=== PATIENT | male | born 1985 | race American Indian/Alaskan Native ===

== ENCOUNTER 2019-10-17 01:43 | Emergency (ER) | payer SELFPAY ==
--- NOTE | 2019-10-17 03:07 | XRay Report ---
LEFT FOOT 3 VIEWS INDICATION: left foot pain. COMPARISON: No relevant prior imaging study available. FINDINGS: No acute skeletal abnormality. No foreign bodies. No focal soft tissue swelling. IMPRESSION: 1. No acute findings. Signer Name: Nirav Parnell MD Signed: 10/17/2019 3:03 AM Workstation Name: [id number]
--- NOTE | 2019-10-17 05:05 | Emergency Department Report ---
ED General Adult HPI - General Chief complaint: Puncture Wound Stated complaint: LEFT FOOT INJURY Time Seen by Provider: 10/17/19 04:54 Source: patient Mode of arrival: Ambulatory Limitations: No Limitations - History of Present Illness Initial comments: 34-year-old male patient presents with complaints of left foot pain after stepping on a screw at work on Thursday. Patient states the screw went through his shoe and into his foot. He rates his current pain as a 7/10 in severity and states the pain only occurs when he steps down on his foot. He denies any swelling, redness, fever/chills/sweats. Patient is unsure of his last tetanus shot. -: Sudden Quality: stabbing - Related Data Previous Rx's Medication Instructions Recorded Last Taken Type Ibuprofen [Motrin 800 MG tab] 800 mg PO Q8HR PRN #21 tablet 10/17/19 Unknown Rx cephALEXin [Keflex] 500 mg PO Q8HR 5 Days #15 cap 10/17/19 Unknown Rx levoFLOXacin [Levaquin] 750 mg PO QDAY 5 Days #5 tablet 10/17/19 Unknown Rx Allergies Allergy/AdvReac Type Severity Reaction Status Date / Time No Known Allergies Allergy Verified 10/17/19 01:46 ED Review of Systems ROS: Stated complaint: LEFT FOOT INJURY Other details as noted in HPI Constitutional: denies: chills, fever Musculoskeletal: as per HPI. denies: myalgia Skin: as per HPI ED Past Medical Hx - Past Medical History Previous Medical History?: Yes Additional medical history: Obesity - Surgical History Past Surgical History?: No - Social History Smoking Status: Current Every Day Smoker Substance Use Type: None - Medications Home Medications: Home Medications Medication Instructions Recorded Confirmed Last Taken Type Ibuprofen [Motrin 800 MG tab] 800 mg PO Q8HR PRN #21 tablet 10/17/19 Unknown Rx cephALEXin [Keflex] 500 mg PO Q8HR 5 Days #15 cap 10/17/19 Unknown Rx levoFLOXacin [Levaquin] 750 mg PO QDAY 5 Days #5 tablet 10/17/19 Unknown Rx ED Physical Exam - General Limitations: No Limitations General appearance: alert, in no apparent distress - Head Head exam: Present: atraumatic, normocephalic - Eye Eye exam: Present: normal appearance - Respiratory Respiratory exam: Absent: respiratory distress - Cardiovascular Cardiovascular Exam: Present: regular rate - Expanded Lower Extremity Exam Left Foot/Toe exam: Present: full ROM, tenderness, puncture wound (small brown diet noted at Place where patient states puncture wound occurred. Moderate tenderness to palpation. No surrounding erythema or swelling noted). Absent: swelling, ecchymosis, deformity, erythema - Neurological Exam Neurological exam: Present: alert, oriented X3 - Psychiatric Psychiatric exam: Present: normal affect, normal mood - Skin Skin exam: Present: warm, dry, intact, normal color. Absent: rash ED Course Vital Signs 10/17/19 10/17/19 01:47 02:16 Temperature 98.7 F Pulse Rate 79 76 Respiratory 18 18 Rate Blood Pressure 173/114 Blood Pressure 153/95 [Right] O2 Sat by Pulse 98 Oximetry ED Medical Decision Making - Radiology Data Radiology results: report reviewed LEFT FOOT 3 VIEWS INDICATION: left foot pain. COMPARISON: No relevant prior imaging study available. FINDINGS: No acute skeletal abnormality. No foreign bodies. No focal soft tissue swelling. IMPRESSION: 1. No acute findings. - Medical Decision Making 34-year-old male patient presents with complaints of left foot pain after stepping on a screw at work on Thursday. Patient states the screw went through his shoe and into his foot. X-ray is negative for abnormal findings. Patient is non-tachycardic and afebrile. Patient is stable for discharge home. Will treat prophylactically with Levaquin and Keflex for 5 days. Recommend follow-up with primary care provider. Discussed very strict return precautions and signs and symptoms of infection that should prompt immediate return to the emergency department, patient verbalizes understanding. Critical care attestation.: If time is entered above; I have spent that time in minutes in the direct care of this critically ill patient, excluding procedure time. ED Disposition Clinical Impression: Puncture wound of left foot Qualifiers: Encounter type: initial encounter Qualified Code(s): S91.332A - Puncture wound without foreign body, left foot, initial encounter Disposition: TO HOME OR SELFCARE Is pt being admited?: No Condition: Stable Instructions: Puncture Wound (ED) Prescriptions: cephALEXin [Keflex] 500 mg PO Q8HR 5 Days #15 cap levoFLOXacin [Levaquin] 750 mg PO QDAY 5 Days #5 tablet Ibuprofen [Motrin 800 MG tab] 800 mg PO Q8HR PRN #21 tablet PRN Reason: pain Referrals: PRIMARY CARE, [Primary Care Provider] - 3-5 Days
[2019-10-17] MEDS ORDERED: TETANUS,DIPH,PERTUSS(ACELL) VACCINE 0.5 ML SYRINGE IM ONE (05:09)
[2019-10-17 06:05] VITALS: BP 163/103
== END 2019-10-17 05:50 | disposition home or self-care (01) ==
LOC: ED 01:43
DX: S91.332A Puncture wound without foreign body, left foot, initial encounter (principal); F17.200 Nicotine dependence, unspecified, uncomplicated; E66.9 Obesity, unspecified; Z79.899 Other long term (current) drug therapy; W26.8XXA Contact with other sharp object(s), not elsewhere classified, initial encounter; Y93.89 Activity, other specified; Y92.410 Unspecified street and highway as the place of occurrence of the external cause; Y99.8 Other external cause status
CPT/HCPCS: 90471; 90715